=== PATIENT | male | born 1980 ===

== ENCOUNTER 2018-01-10 12:40 | Inpatient (IN) | payer SELFPAY ==
--- NOTE | 2018-01-10 14:18 | Ultrasound Report ---
Testicular sonogram: History: Right testicular pain for 2 weeks. Findings: Right testis measures 3.3 x 1.8 x 2.2 cm. Uniform echogenicity and normal color flow. The epididymis is not visualized. There is a mass identified in the region of the epididymis, lateral to testis, extending to the right inguinal area. No peristalsis is seen within the mass. No abnormal color flow or fluid. Left testes for by 1.8 x 3 cm. Uniform echogenicity with normal color flow normal epididymis. No fluid in the scrotal sac. Impression: Right inguinoscrotal mass, would be hernia containing fat or collapsed bowel among others. Recommend CT scan of pelvis.
[2018-01-10] MEDS ORDERED: MORPHINE IV ONE (16:21)
[2018-01-10] MEDS ORDERED: NACL 0.9% 1000 ML 1,000 ML IV ONE ×2 (16:21→16:49)
[2018-01-10] MEDS ORDERED: TORADOL IV ONE (16:21)
[2018-01-10] MEDS ORDERED: ZOFRAN IV ONE (16:21)
--- NOTE | 2018-01-10 16:27 | Emergency Department Report ---
Blank Doc - Documentation Documentation: Patient is a 37-year-old male who is presenting with right inguinal and scrotal pain. Patient states pain has been present for approximately 2 weeks. Patient has had a hernia that comes and goes in this region before partially a year and a half was never had pain. Patient's had normal bowel movements until 2 days ago. Patient has not had a bowel movement since. Patient states the pain is 8 out of 10 in severity and is concentrated in the right scrotum and right inguinal area. Patient states the hernias Larger and cannot be reduced at this time. Patient states this is not normal for him. Patient states there is some nausea but denies vomiting. Patient also denies fever. On brief focused physical exam patient has firm area swelling to the right inguinal area as well as the right scrotum. There is some very mild hyperemia to the skin on the right side of the scrotum. There is no areas of fluctuance. Ultrasound was performed that shows a mass is in the right scrotum suggestive of a hernia however there is no peristalsis and CT was suggested. Patient removed the main area for continued care. A CT abdomen and pelvis with by mouth IV contrast will be done labs are been ordered.
--- NOTE | 2018-01-10 16:47 | Emergency Department Report ---
ED Male HPI - General Chief complaint: Urogenital-Male Stated complaint: TESTICULAR PAIN RIGHT SIDE Time Seen by Provider: 01/10/18 16:12 Source: patient Mode of arrival: Ambulatory Limitations: No Limitations - History of Present Illness Initial comments: Patient said he is having right testicular pain for the past weeks. Denies any history of trauma or injury. MD Complaint: testicle pain, testicle swelling -: Gradual, week(s) (two) Location: right testicle, right inguinal region Radiation: none Severity: severe Severity scale (0 -10): 8 Quality: aching, sharp Consistency: constant Improves with: none Worsens with: none denies other symptoms - Related Data Sexually active: Yes Allergies Allergy/AdvReac Type Severity Reaction Status Date / Time No Known Allergies Allergy Verified 01/10/18 13:25 ED Review of Systems ROS: Stated complaint: TESTICULAR PAIN RIGHT SIDE Other details as noted in HPI Comment: All other systems reviewed and negative Constitutional: denies: chills, fever Eyes: denies: eye pain, eye discharge ENT: denies: ear pain, throat pain Respiratory: denies: cough, orthopnea, shortness of breath Cardiovascular: denies: chest pain, palpitations, dyspnea on exertion Endocrine: no symptoms reported Gastrointestinal: denies: abdominal pain, nausea, vomiting, diarrhea Genitourinary: denies: urgency, dysuria, frequency Musculoskeletal: denies: back pain, joint swelling Skin: denies: rash, lesions Neurological: denies: headache, weakness, numbness Psychiatric: denies: anxiety, depression Hematological/Lymphatic: denies: easy bleeding, easy bruising ED Past Medical Hx - Past Medical History Previous Medical History?: No Hx HIV: Yes - Surgical History Past Surgical History?: No - Social History Smoking Status: Never Smoker Substance Use Type: Alcohol ED Physical Exam - General Limitations: No Limitations General appearance: alert, in no apparent distress - Head Head exam: Present: atraumatic, normocephalic, normal inspection - Eye Eye exam: Present: normal appearance, PERRL, EOMI Pupils: Present: normal accommodation - ENT ENT exam: Present: normal exam, normal orophraynx, mucous membranes moist - Neck Neck exam: Present: normal inspection, full ROM. Absent: tenderness - Respiratory Respiratory exam: Present: normal lung sounds bilaterally. Absent: respiratory distress, wheezes, rales, rhonchi, stridor - Cardiovascular Cardiovascular Exam: Present: regular rate, normal rhythm, normal heart sounds - GI/Abdominal GI/Abdominal exam: Present: soft, tenderness, normal bowel sounds, hernia, other (right inguinal swelling with tenderness to palpation.). Absent: distended, guarding, rebound, rigid - Rectal Rectal exam: Present: deferred - exam: Present: testicular tenderness, scrotal swelling External exam: Present: normal external exam, other (chaperoned was Ms. Aliyah RN.) - Extremities Exam Extremities exam: Present: normal inspection, full ROM, normal capillary refill - Back Exam Back exam: Present: normal inspection, full ROM. Absent: tenderness, CVA tenderness (R), CVA tenderness (L) - Neurological Exam Neurological exam: Present: alert, oriented X3, CN II-XII intact - Psychiatric Psychiatric exam: Present: normal affect, normal mood, anxious - Skin Skin exam: Present: warm, dry, intact, normal color. Absent: rash ED Course Vital Signs 01/10/18 01/10/18 13:28 19:44 Temperature 98.3 F Pulse Rate 74 67 Respiratory 16 17 Rate Blood Pressure 143/89 Blood Pressure 121/72 [Right] O2 Sat by Pulse 100 97 Oximetry - Reevaluation(s) Reevaluation #1: 01/10/18 23:02 I consulted the General Surgeon transition advisor Dr Kramer. He will see patient tomorrow morning. Patient will be admitted by the hospitalist transition advisor Dr Myranda Reeder for further evaluation and management. ED Medical Decision Making - Lab Data Result diagrams: 01/10/18 16:52 01/10/18 16:52 - Radiology Data Radiology results: report reviewed, image reviewed - Medical Decision Making Right Inguinal Mass. Inguinal Hernia. Right Scrotal Mass. Critical care attestation.: If time is entered above; I have spent that time in minutes in the direct care of this critically ill patient, excluding procedure time. ED Disposition Clinical Impression: Right inguinal hernia, Scrotal swelling Disposition: OP ADMIT IP TO THIS HOSP Is pt being admited?: Yes Does the pt Need Aspirin: No Condition: Stable Referrals: PRIMARY CARE, [Primary Care Provider] - 3-5 Days Time of Disposition: 22:05
[2018-01-10 17:01] LABS: Basophils % (Auto) 0.7 % (0.0-1.8); Eosinophils % (Auto) 1.1 % (0.0-4.3); Hemoglobin 16.5 gm/dl (11.8-15.2); Lymphocytes # (Auto) 1.3 K/mm3 (1.2-5.4); Lymphocytes % (Auto) 31.3 % (13.4-35.0); Mean Corpuscular HGB Conc 35 % (32-34); Mean Corpuscular Hemoglobin 34 pg (28-32); Mean Corpuscular Volume 96 fl (84-94); Monocytes # (Auto) 0.3 K/mm3 (0.0-0.8); Monocytes % (Auto) 8.3 % (0.0-7.3); Platelet Count 230 K/mm3 (140-440); Red Blood Count 4.87 M/mm3 (3.65-5.03); Red Cell Distribution Width 12.2 % (13.2-15.2)
[2018-01-10 17:11] LABS: INR 0.91 (0.87-1.13)
[2018-01-10 17:12] LABS: Partial Thromboplastin Time 25.4 Sec. (24.2-36.6)
[2018-01-10] MEDS ORDERED: DILAUDID IV ONE (17:15)
[2018-01-10] MEDS ORDERED: REGLAN IV PRN (17:15)
[2018-01-10 17:16] LABS: Alanine Aminotransferase 25 units/L (7-56); Albumin 4.3 g/dL (3.9-5); BUN/Creatinine Ratio 20; Blood Urea Nitrogen 14 mg/dL (9-20); Calcium 9.1 mg/dL (8.4-10.2); Hemolysis Index 3
--- NOTE | 2018-01-10 20:54 | Cat Scan Report ---
FINAL REPORT PROCEDURE: CT ABDOMEN PELVIS W CON TECHNIQUE: Computerized axial tomography of the abdomen and pelvis was performed after the IV injection of iodinated nonionic contrast. HISTORY: Right inginoscrotal mass with pain COMPARISON: No prior studies are available for comparison. FINDINGS: Liver, spleen, pancreas and adrenal glands are within normal limits. Bilateral kidneys demonstrate uniform enhancement without hydronephrosis. Urinary bladder is normally distended with normal outlines. Aorta is of normal caliber. There is no free fluid or free air. Gallbladder is unremarkable. Small bowel loops are within normal limits. Appendix is normal. A right inguinal hernia is noted containing fat without any signs of obstruction measuring 13 centimeters x 4 x 6 centimeters. IMPRESSION: Uncomplicated large fat containing right inguinal hernia
[2018-01-10] MEDS ORDERED: MORPHINE IV PRN (22:42)
[2018-01-10] MEDS ORDERED: ZOFRAN IV PRN (22:42)
[2018-01-10] MEDS ORDERED: TYLENOL PO PRN (22:42)
[2018-01-10] MEDS ORDERED: SODIUM CHLORIDE FLUSH SYRINGE 10 ML IV PRN (22:42)
--- NOTE | 2018-01-10 22:42 | History and Physical Report ---
History of Present Illness Date of examination: 01/10/18 History of present illness: 37-year-old male in no medical problems comes emergency room with complaining of right groin pain started over the last 4 weeks, he describes it as sharp pain , intermittent every 5 minutes, no radiation, candidate and exacerbating or relieving factors. Review of systems Constitutional: no weight loss, chills, fever Ears, eyes, nose, mouth and throat: no nasal congestion, no nasal discharge, no sinus pressure, no vision change, no red eye. Neck: No neck pain or rigidity. Cardiovascular: no chest pain, palpitations Respiratory: no cough, shortness of breath Gastrointestinal: no abdominal pain hematochezia Genitourinary : no frequency , no hematuria Musculoskeletal: no joint swelling or muscle ache Integumentary: no rash, no pruritis Neurological: no parathesias, no numbness, no focal weakness Endocrine: no cold or heat intolerance, no polyuria or polydipsia Hematologic/Lymphatic: no easy bruising, no easy bleeding, no gland swelling Allergic/Immunologic: no urticaria, no angioedema. PAST MEDICAL HISTORY: None PAST SURGICAL HISTORY: None SOCIAL HISTORY: Social alcohol, no drugs, tobacco FAMILY HISTORY: Hypertension Medications and Allergies Allergies Allergy/AdvReac Type Severity Reaction Status Date / Time No Known Allergies Allergy Verified 01/10/18 13:25 Active Meds: Active Medications Metoclopramide HCl (Reglan) 10 mg IV Q6H PRN PRN Reason: Nausea And Vomiting Exam - Physical Exam Narrative exam: Gen. appearance: Patient lying in bed, no apparent distress HEENT: Normocephalic, atraumatic, pupils equally round and reactive to light, extraocular movement intact, and no sclericterus,. No JVD or thyromegaly or nodule,neck supple, no carotid bruit ,mucous membranes moist, no exudate or erythema Heart: S1, S2, regular rate and rhythm Lungs: Clear bilaterally, breathing comfortable Abdomen: Positive bowel sounds, non-tender, nondistended, no organomegaly Extremity: Right inguinal hernia no edema cyanosis, clubbing Skin: no rash, dry, warm Neuro: Oriented 3, cranial nerves II-12 intact, speech is fluent, motor and sensory intact - Constitutional Vitals: Temp Pulse Resp BP Pulse Ox 98.3 F 67 17 121/72 97 01/10/18 13:28 01/10/18 19:44 01/10/18 19:44 01/10/18 19:44 01/10/18 19:44 Results - Labs CBC & Chem 7: 01/10/18 16:52 01/10/18 16:52 Labs: Abnormal lab results 01/10/18 01/10/18 Range/Units 16:52 16:52 WBC 4.0 L (4.5-11.0) K/mm3 Hgb 16.5 H (11.8-15.2) gm/dl Hct 47.0 H (35.5-45.6) % MCV 96 H (84-94) fl MCH 34 H (28-32) pg MCHC 35 H (32-34) % RDW 12.2 L (13.2-15.2) % [place] % (Auto) 8.3 H (0.0-7.3) % Creatinine 0.7 L (0.8-1.5) mg/dL Glucose 104 H (75-100) mg/dL - Imaging and Cardiology CT scan - abdomen: report reviewed CT scan - pelvis: report reviewed Assessment and Plan testicular US reviewed Assessment Inguinal hernia Plan Admit to medicine Nothing by mouth, IV fluids, consult IV morphine, DVT prophylaxis
[2018-01-10] MEDS ORDERED: NACL 0.9% 1000 ML 1,000 ML IV SCH (23:00)
[2018-01-11 05:11] LABS: Bilirubin,Urine NEG (Negative); Blood,Urine NEG (Negative); Color,Urine Yellow (Yellow); Mucus,Urine FEW /HPF; Protein,Urine <15 mg/dL mg/dL (Negative); RBC,Urine < 1.0 /HPF (0.0-6.0); Urobilinogen,Urine < 2.0 mg/dL (<2.0); WBC,Urine < 1.0 /HPF (0.0-6.0)
[2018-01-11 05:24] LABS: Eosinophils # (Auto) 0.2 K/mm3 (0.0-0.4); Eosinophils % (Auto) 4.1 % (0.0-4.3); Hematocrit 43.5 % (35.5-45.6); Hemoglobin 14.9 gm/dl (11.8-15.2); Lymphocytes # (Auto) 1.3 K/mm3 (1.2-5.4); Lymphocytes % (Auto) 33.3 % (13.4-35.0); Mean Corpuscular HGB Conc 34 % (32-34); Mean Corpuscular Hemoglobin 34 pg (28-32); Mean Corpuscular Volume 98 fl (84-94); Monocytes # (Auto) 0.4 K/mm3 (0.0-0.8); Monocytes % (Auto) 10.8 % (0.0-7.3); Platelet Count 203 K/mm3 (140-440); Red Blood Count 4.43 M/mm3 (3.65-5.03); Red Cell Distribution Width 12.3 % (13.2-15.2)
[2018-01-11 07:29] LABS: BUN/Creatinine Ratio 15; Blood Urea Nitrogen 12 mg/dL (9-20); Calcium 8.7 mg/dL (8.4-10.2); Hemolysis Index 36
[2018-01-11] MEDS ORDERED: ZOFRAN ONE (09:54)
[2018-01-11] MEDS ORDERED: XYLOCAINE MPF 2% ONE (09:54)
[2018-01-11] MEDS ORDERED: SUBLIMAZE ONE (09:54)
[2018-01-11] MEDS ORDERED: DIPRIVAN 10 MG/ML IV ONE (09:54)
[2018-01-11] MEDS ORDERED: NACL 0.9% 100 ML ONE (09:54)
[2018-01-11] MEDS ORDERED: LOVENOX SUB-Q SCH ×2 (10:00)
[2018-01-11] MEDS ORDERED: SODIUM CHLORIDE FLUSH SYRINGE 10 ML IV SCH (10:00)
[2018-01-11] MEDS ORDERED: DILAUDID ONE ×2 (11:09→12:27)
[2018-01-11] MEDS ORDERED: VERSED ONE ×2 (12:22→13:46)
--- NOTE | 2018-01-11 12:39 | Consultation ---
History of Present Illness Consult date: 01/11/18 Chief complaint: right groin pain and swelling - History of present illness History of present illness: 37 yo M with no PMHx presents with swelling of the right scrotum and groin for the last month. He states it is sharp and he often has trouble walking due to the pain. Last night the bulge in his groin became large and tender and could not be pushed back in. He c/o nausea. No vomiting. No f/c. No c/d. The pain is relieved only by IV pain medication. Past History Past Medical History: other (right inguinal hernia) Past Surgical History: No surgical history Social history: no significant social history Family history: no significant family history Medications and Allergies Allergies Allergy/AdvReac Type Severity Reaction Status Date / Time No Known Allergies Allergy Verified 01/10/18 13:25 Active Meds: Active Medications Acetaminophen (Tylenol) 650 mg PO Q4H PRN PRN Reason: Pain MILD(1-3)/Fever >100.5/SNYDER Enoxaparin Sodium (Lovenox) 40 mg SUB-Q QDAY@1000 [facility] Last Admin: 01/11/18 09:51 Dose: 40 mg Sodium Chloride (Nacl 0.9% 1000 Ml) 1,000 mls @ 75 mls/hr IV DIRECT [facility] Last Admin: 01/11/18 00:19 Dose: 75 mls/hr Metoclopramide HCl (Reglan) 10 mg IV Q6H PRN PRN Reason: Nausea And Vomiting Morphine Sulfate (Morphine) 2 mg IV Q4H PRN PRN Reason: Pain, Moderate (4-6) Last Admin: 01/11/18 00:19 Dose: 2 mg Ondansetron HCl (Zofran) 4 mg IV Q4H PRN PRN Reason: Nausea And Vomiting Last Admin: 01/11/18 00:19 Dose: 4 mg Sodium Chloride (Sodium Chloride Flush Syringe 10 Ml) 10 ml IV BID [facility] Last Admin: 01/11/18 09:51 Dose: Not Given Sodium Chloride (Sodium Chloride Flush Syringe 10 Ml) 10 ml IV PRN PRN PRN Reason: LINE FLUSH Review of Systems All systems: negative (10 pt ROS performed and negative except for that listed in HPI) Exam Vital Signs Temp Pulse Resp BP Pulse Ox 98.3 F 74 16 143/89 100 01/10/18 13:28 01/10/18 13:28 01/10/18 13:28 01/10/18 13:28 01/10/18 13:28 Narrative exam: Gen: AAOx3. NAD CV: S1, S2+ resp; even and unlabored Abd: soft, NT, ND. Right inguinal hernia, reducible, no skin changes or TTP. Recurs with minimal straining of the abdomen. Ext: no c/c/e Results - Labs 01/11/18 04:41 01/11/18 04:41 Abnormal lab results 01/10/18 01/10/18 01/11/18 Range/Units 16:52 16:52 04:13 WBC 4.0 L (4.5-11.0) K/mm3 Hgb 16.5 H (11.8-15.2) gm/dl Hct 47.0 H (35.5-45.6) % MCV 96 H (84-94) fl MCH 34 H (28-32) pg MCHC 35 H (32-34) % RDW 12.2 L (13.2-15.2) % Esmeralda % (Auto) 8.3 H (0.0-7.3) % Creatinine 0.7 L (0.8-1.5) mg/dL Glucose 104 H (75-100) mg/dL Ur Specific [place] 1.046 H (1.003-1.030) 01/11/18 Range/Units 04:41 WBC 4.0 L (4.5-11.0) K/mm3 Hgb (11.8-15.2) gm/dl Hct (35.5-45.6) % MCV 98 H (84-94) fl MCH 34 H (28-32) pg MCHC (32-34) % RDW 12.3 L (13.2-15.2) % Esmeralda % (Auto) 10.8 H (0.0-7.3) % Creatinine (0.8-1.5) mg/dL Glucose (75-100) mg/dL Ur Specific [place] (1.003-1.030) Diabetes panel 01/10/18 01/11/18 Range/Units 16:52 04:41 Sodium 140 137 (137-145) mmol/L Potassium 3.7 4.2 (3.6-5.0) mmol/L Chloride 99.8 102.6 (98-107) mmol/L Carbon Dioxide 27 25 (22-30) mmol/L BUN 14 12 (9-20) mg/dL Creatinine 0.7 L 0.8 (0.8-1.5) mg/dL Glucose 104 H 88 (75-100) mg/dL Calcium 9.1 8.7 (8.4-10.2) mg/dL AST 28 (5-40) units/L ALT 25 (7-56) units/L Alkaline Phosphatase 80 (35-129) units/L Total Protein 7.8 (6.3-8.2) g/dL Albumin 4.3 (3.9-5) g/dL Calcium panel 01/10/18 01/11/18 Range/Units 16:52 04:41 Calcium 9.1 8.7 (8.4-10.2) mg/dL Albumin 4.3 (3.9-5) g/dL Pituitary panel 01/10/18 01/11/18 Range/Units 16:52 04:41 Sodium 140 137 (137-145) mmol/L Potassium 3.7 4.2 (3.6-5.0) mmol/L Chloride 99.8 102.6 (98-107) mmol/L Carbon Dioxide 27 25 (22-30) mmol/L BUN 14 12 (9-20) mg/dL Creatinine 0.7 L 0.8 (0.8-1.5) mg/dL Glucose 104 H 88 (75-100) mg/dL Calcium 9.1 8.7 (8.4-10.2) mg/dL Adrenal panel 01/10/18 01/11/18 Range/Units 16:52 04:41 Sodium 140 137 (137-145) mmol/L Potassium 3.7 4.2 (3.6-5.0) mmol/L Chloride 99.8 102.6 (98-107) mmol/L Carbon Dioxide 27 25 (22-30) mmol/L BUN 14 12 (9-20) mg/dL Creatinine 0.7 L 0.8 (0.8-1.5) mg/dL Glucose 104 H 88 (75-100) mg/dL Calcium 9.1 8.7 (8.4-10.2) mg/dL Total Bilirubin 0.40 (0.1-1.2) mg/dL AST 28 (5-40) units/L ALT 25 (7-56) units/L Alkaline Phosphatase 80 (35-129) units/L Total Protein 7.8 (6.3-8.2) g/dL Albumin 4.3 (3.9-5) g/dL Assessment and Plan 37 yo M with reducible right inguinal hernia containing fat 1. Pt NPO 2. prn pain control 3. DVT ppx 4. IVF 5. Pt is requiring IV pain medications for right groin pain. In addition, because patient is having pain in the right groin, trouble walking, and unable to work due to the hernia, we will perform inguinal hernia repair with mesh. I will use the optimization engineer line to obtain consent for an open right inguinal hernia repair with mesh. The patient is agreeable. Thank you, please call with questions or concerns.
[2018-01-11] MEDS ORDERED: ceFAZolin 2 GM in NACL 0.9% 100 ML IV ONE (13:08)
[2018-01-11] MEDS ORDERED: DILAUDID IV PRN (13:31)
--- NOTE | 2018-01-11 13:37 | Anesthesia Day of Surgery ---
Anesthesia Day of Surgery - Day of Surgery Patient Examined: Yes Patient H&P Reviewed: Yes Patient is NPO: Yes Beta Blockers: No Cardiac Clearance: No Pulmonary Clearance: No
--- NOTE | 2018-01-11 13:37 | Anesthesia Consultation ---
Anesthesia Consult and Med Hx - Airway Anesthetic Teeth Evaluation: Good ROM Head & Neck: Adequate Mental/Hyoid Distance: Adequate Mallampati Class: Class III Intubation Access Assessment: Probably Good - Pulmonary Exam CTA: Yes - Cardiac Exam Cardiac Exam: No Murmur - Pre-Operative Health Status ASA Pre-Surgery Classification: ASA2 Proposed Anesthetic Plan: General - Pulmonary Hx Asthma: No COPD: No Hx Pneumonia: No - Endocrine Hx End Stage Renal Disease: No
[2018-01-11] MEDS ORDERED: MARCAINE 0.25% INFILTRATI ONE ×2 (14:03→14:05)
[2018-01-11] MEDS ORDERED: BLOXIVERZ ONE ×2 (15:22→15:41)
[2018-01-11] MEDS ORDERED: ROBINUL ONE (15:23)
[2018-01-11] MEDS ORDERED: ANCEF ONE (15:23)
[2018-01-11] MEDS ORDERED: TORADOL ONE (15:25)
[2018-01-11] MEDS ORDERED: PERCOCET 5/325 PO PRN (15:31)
--- NOTE | 2018-01-11 15:33 | Post Operative Note ---
Date of procedure: 01/11/18 Pre-op diagnosis: right inguinal hernia Post-op diagnosis: same Findings: right inguinal indirect hernia with chronically scarred sac, omentum in hernia sac Procedure: open right inguinal hernia repair with mesh Anesthesia: POPPYA, local Surgeon: ASHLEY HADDAD Estimated blood loss: minimal Pathology: list (hernia sac) Specimen disposition: to lab Condition: stable Disposition: PACU
[2018-01-11] MEDS ORDERED: NACL 0.9% 1000 ML 1,000 ML ONE (15:53)
--- NOTE | 2018-01-11 16:26 | Discharge Summary ---
Providers - Providers Date of Admission: 01/10/18 22:42 Date of discharge: 01/11/18 Attending physician: LATA CHARLES 01/10/18 22:42 Consult to Physician [CONS] Routine Comment: Consulting Provider: SHARRI DUENAS Physician Instructions: Reason For Exam: hernia Primary care physician: PSYCHIATRIC REGISTERED NURSE Hospitalization Reason for admission: scrotal swelling /right inguinal hernia Condition: Stable Pertinent studies: Testicular ultrasound; right inguinal scrotal mass could be hernia containing fat and collapsed bowel CT abdomen and pelvis; uncomplicated large fat containing right inguinal hernia Procedures: Diagnosis :right inguinal indirect hernia with chronically scarred sac, omentum in hernia sac Procedure; open right inguinal hernia repair with meshl Hospital course: Very pleasant 37-year-old male patient with no significant past medical history was admitted through emergency room with right groin pain and swelling Initial evaluation is consistent with right inguinal hernia Admitted to the hospital symptomatically managed, evaluated by surgery Patient underwent right hernia repair with mesh Patient tolerated the procedure well Continue Postopcare, feeling better except for some pain Vital signs stable Physical examination prior to discharge did not show any new changes Surgical wound is clean without bleeding or hematoma Surgery cleared for discharge after dinner if stable Plan of care is reviewed with the patient and the nurse Discharge diagnosis; --Scrotal swelling --Right inguinal hernia; status post an inguinal hernia repairs with mesh Disposition: DC-01 TO HOME OR SELFCARE Time spent for discharge: 31 min - Discharge Diagnoses (1) Right inguinal hernia Status: Acute (2) Scrotal swelling Status: Acute Core Measure Documentation - Palliative Care Palliative Care/ Comfort Measures: Not Applicable - Core Measures Any of the following diagnoses?: none Exam - Constitutional Vitals: Temp Pulse Resp BP Pulse Ox 97.3 F L 73 16 106/71 100 01/11/18 15:40 01/11/18 16:15 01/11/18 16:15 01/11/18 16:15 01/11/18 16:15 General appearance: Present: no acute distress, well-nourished - EENT Eyes: Present: PERRL, EOM intact - Neck Neck: Present: supple, normal ROM - Respiratory Respiratory effort: normal Respiratory: bilateral: diminished, negative: rales, rhonchi, wheezing - Cardiovascular Rhythm: regular Heart Sounds: Present: S1 & S2 - Extremities Extremities: no ischemia, No edema - Abdominal General gastrointestinal: Present: soft, non-tender, non-distended, normal bowel sounds - Integumentary Integumentary: Present: clear, warm - Musculoskeletal Musculoskeletal: strength equal bilaterally - Psychiatric Psychiatric: appropriate mood/affect, cooperative - Neurologic Neurologic: CNII-XII intact, moves all extremities Plan Activity: advance as tolerated Diet: regular Additional Instructions: Postoperative Precautions, do not lift weights. Scrotal support. A few have any bleeding from the surgical site or any swelling , contact M.D. or go to emergency room Follow up with: ASHLEY HADDAD DO [Staff Physician] - 14 Days PRIMARY CARE, [Primary Care Provider] - 3-5 Days Prescriptions: oxyCODONE /ACETAMINOPHEN [Percocet 5/325 mg] 1 tab PO Q6H PRN #20 tablet PRN Reason: Pain, Moderate (4-6)
--- NOTE | 2018-01-11 16:31 | Post Anesthesia Evaluation ---
- Post Anesthesia Evaluation Patient Participated: Yes Airway Patent: Yes Stable Respiratory Function: Yes Nausea/Vomiting: No Temp > 96.8F: Yes Pain Manageable: Yes Adequeate Hydration: Yes Anesthesia Complications: No Block Receding Appropriately: Not Applicable Patient on Ventilator: No
[2018-01-11 16:56] VITALS: BP 124/79
--- NOTE | 2018-01-12 14:22 | Operative Report ---
Operative Report Operative Report: Date of procedure: 01/11/18 Pre-op diagnosis: right inguinal hernia Post-op diagnosis: same Findings: right inguinal indirect hernia with chronically scarred sac, omentum in hernia sac Procedure: open right inguinal hernia repair with mesh Anesthesia: PERLITA, local Surgeon: ASHLEY HADDAD Estimated blood loss: minimal Pathology: list (hernia sac) Specimen disposition: to lab Condition: stable Disposition: PACU HPI an indication: Patient is a 37-year-old male with no past medical history presented to the emergency room with complaints of right groin pain and swelling for 4 weeks. He was found to have a right inguinal hernia containing fat. The patient was admitted for pain control. Upon examination, the patient' s pain was better and his right inguinal hernia was reducible however because of his debility from the hernia including pain, swelling, inability to work, difficulty walking, the decision was made to proceed with surgery. All risks, benefits, alternatives to surgery were discussed with the patient and questions answered. Consent was obtained using the language line crm business analyst. Procedure in detail: The patient was identified in the preoperative area, taken back to the operating room and placed on the operating room table in supine position. After anesthesia was induced, the right groin and lower abdomen hair was clipped and then prepped and draped in the usual sterile fashion. Timeout was performed. An oblique incision was made between the ASIS and pubic tubercle in the right groin using a 15 blade. The dissection was carried down through skin and subcutaneous tissue using electrocautery until the external oblique fascia was identified. Hemostasis was achieved along the way. The external oblique fascia was opened in the direction of its fibers using a Metzenbaum scissor. The ilioinguinal nerve was identified and protected. Using blunt dissection, the external oblique fibers were from the cord structures. A indirect inguinal hernia was identified. The cord structures were encircled using a Joshua drain and retracted. The hernia sac was identified and from the cremasteric muscles. The omentum contained within the hernia sac was reduced. The hernia sac was chronically scarred to the cord structures and could not be distally. Therefore the borders of the hernia sac were identified and the hernia sac was ligated and transected from the cord structures. The hernia sac was then ligated at the internal ring and transected using electrocautery and passed off the table as a specimen. The field was then irrigated and hemostasis ensured. Using a 6 cm plug and patch mesh, the hernia was fixed. The plug was formed and placed into the internal ring and sutured on both sides to the ring using 2-0 Prolene suture. Patch was affixed to the fascia overlying the pubic tubercle using a 2- 0 Prolene suture. A keyhole was then cut in the center of the mesh in order to accommodate the cord structures. The medial leaflet was sutured to the transversalis fascia using interrupted 2-0 Prolene sutures. The lateral leaflet was brought underneath the cord structures and sutured to the shelving edge using 2-0 Prolene interrupted sutures. The leaflets were then tucked under the external oblique fascia and approximated to each other using 2-0 Prolene suture, with great care to avoid injury to the cord structures or ilioinguinal nerve. The ilioinguinal nerve was then placed in normal anatomic position over the mesh. The external oblique fascia was reapproximated using a running 3-0 Vicryl suture. The wound was irrigated and hemostasis ensured. The subcutaneous tissue was approximated using 2-0 Vicryl interrupted sutures. The deep dermal layer was closed using 3-0 Vicryl interrupted sutures. The skin was closed using 4-0 Monocryl subcuticular running stitch and skin glue. Local anesthetic was once again infiltrated into the skin incision. An ilioinguinal nerve block was also performed. At the end of the case, all sponge, instrument, sharp counts were correct 2. The patient was awoken from anesthesia, extubated, taken to PACU in stable condition.
== END 2018-01-11 20:10 | disposition home or self-care (01) | DRG 352 ==
LOC: ED 12:40 → 3B-SURG 22:42
PROVIDERS: ADMIT Internal Medicine; ATTEND Internal Medicine
PROC: 0YU50JZ Supplement Right Inguinal Region with Synthetic Substitute, Open Approach (ICD-10-PCS; principal; 2018-01-11)
DX: K40.90 Unilateral inguinal hernia, without obstruction or gangrene, not specified as recurrent (principal); N50.89 Other specified disorders of the male genital organs; Z82.49 Family history of ischemic heart disease and other diseases of the circulatory system; Z72.89 Other problems related to lifestyle
CPT/HCPCS: 36415; 74177; 80048; 80053; 81001; 82140; 85025; 85610; 85730; 93975; 96374; 96375; J0690; J1170; J1650; J1885; J2250; J2270; J2405; J2704; J2710; J3010; J7030; Q9967

== ENCOUNTER 2018-01-16 22:50 | Emergency (ER) | payer SELFPAY ==
--- NOTE | 2018-01-17 02:30 | Ultrasound Report ---
FINAL REPORT EXAM: US TESTICULAR DOPPLER COMP HISTORY: swelling and pain, s/p Hernia repair TECHNIQUE: Real-time sonography was performed of the scrotum and images are submitted for interpretation. PRIORS: CT scan from 01/10/2018 FINDINGS: The scrotal skin appears thickened. Both testes appear normal in size, shape and echogenicity with the right measuring 3.6 x 2.1 x 2.1 cm and the left measuring 4.3 x 2.3 x 2.9 cm. The epididymides both appear normal. The right epididymal head measures 0.8 x 1.3 x 1.9 cm and the left measures 0.7 x 1.5 x 1.1 cm. There is a large right hydrocele. Color duplex evaluation shows normal waveforms without evidence of torsion. The right inguinal canal was scanned and appears normal. IMPRESSION: New large right hydrocele. Thickening of the scrotal skin may represent cellulitis or post surgical edema. Otherwise, normal testicular ultrasound.
[2018-01-17] MEDS ORDERED: MORPHINE IV ONE ×2 (07:08→11:49)
[2018-01-17] MEDS ORDERED: ZOFRAN IV ONE (07:11)
--- NOTE | 2018-01-17 08:40 | Cat Scan Report ---
CT scan of abdomen and pelvis with IV contrast: Findings: Large ill-defined density right lower lobe probably suggestive of pneumonitis/segmental atelectasis. Pleural thickening right and left lower lobe. Normal liver spleen pancreas and gallbladder. Normal adrenals kidneys and bladder. No free intraperitoneal fluid or air. No evidence of adenopathy. Gaseous colon with moderate volume stool in colon. No evidence of bowel obstruction. There is thickening noted of the right scrotal skin with moderate amount of hydrocele. The testes is not optimally visualized. There there is right inguinal mass noted extending to the pelvis. This may be related to postsurgical changes or recurrent hernia. Part of the mass within pelvis appears cystic and measures 1.5 cm. Impression: Right inguinoscrotal changes as detailed above.
[2018-01-17 09:42] LABS: Basophils % (Auto) 0.3 % (0.0-1.8); Eosinophils % (Auto) 0.3 % (0.0-4.3); Hemoglobin 16.5 gm/dl (11.8-15.2); Lymphocytes # (Auto) 1.4 K/mm3 (1.2-5.4); Lymphocytes % (Auto) 14.6 % (13.4-35.0); Mean Corpuscular HGB Conc 35 % (32-34); Mean Corpuscular Hemoglobin 34 pg (28-32); Mean Corpuscular Volume 97 fl (84-94); Monocytes # (Auto) 1.1 K/mm3 (0.0-0.8); Monocytes % (Auto) 11.8 % (0.0-7.3); Platelet Count 243 K/mm3 (140-440); Red Blood Count 4.85 M/mm3 (3.65-5.03)
[2018-01-17 10:01] LABS: BUN/Creatinine Ratio 19; Blood Urea Nitrogen 15 mg/dL (9-20); Calcium 9.7 mg/dL (8.4-10.2); Hemolysis Index 2
--- NOTE | 2018-01-17 10:20 | Emergency Department Report ---
ED Male HPI - General Chief complaint: Urogenital-Male Stated complaint: ABD PAIN Time Seen by Provider: 01/17/18 09:15 Source: patient, family Mode of arrival: Ambulatory Limitations: No Limitations - History of Present Illness Initial comments: 37 yo M s/p right inguinal hernia repair 6 days ago. Reports right testicular pain ans swelling since the surgey, radiating up into RLQ and RUQ. States pain begacame worse yesterday. Pt has not followed up w/ surgeon yet, Dr Haddad. Denies fever, vomiting, reports nausea. Denies constipation, dysuria, hematuria. MD Complaint: testicle pain, testicle swelling -: Gradual, days(s) (6) Location: right testicle, right inguinal region Radiation: other (RLQ and RUQ) Severity: moderate Quality: other ("pulling sensation") Consistency: intermittent Improves with: none Worsens with: other (walking) recent surgery swelling. denies: discharge, urinary retention, blood in urine, dysuria, fever - Related Data Previous Rx's Medication Instructions Recorded Last Taken Type oxyCODONE /ACETAMINOPHEN [Percocet 1 tab PO Q6H PRN #20 tablet 01/11/18 Unknown Rx 5/325 mg] Naproxen [Naprosyn] 500 mg PO BID PRN #20 tablet 01/17/18 Unknown Rx oxyCODONE /ACETAMINOPHEN [Percocet 1 tab PO Q6HR PRN #6 tablet 01/17/18 Unknown Rx 5/325] Allergies Allergy/AdvReac Type Severity Reaction Status Date / Time No Known Allergies Allergy Verified 01/10/18 13:25 ED Review of Systems ROS: Stated complaint: ABD PAIN Other details as noted in HPI Comment: All other systems reviewed and negative Constitutional: denies: fever Respiratory: denies: cough, shortness of breath Gastrointestinal: abdominal pain, nausea. denies: vomiting, constipation Genitourinary: testicular pain. denies: dysuria, hematuria ED Past Medical Hx - Past Medical History Hx Congestive Heart Failure: No Hx Diabetes: No Hx Asthma: No Hx COPD: No Hx HIV: Yes - Surgical History Past Surgical History?: Yes Additional Surgical History: hernia repair - Social History Smoking Status: Never Smoker Substance Use Type: None - Medications Home Medications: Home Medications Medication Instructions Recorded Confirmed Last Taken Type oxyCODONE /ACETAMINOPHEN [Percocet 1 tab PO Q6H PRN #20 tablet 01/11/18 Unknown Rx 5/325 mg] Naproxen [Naprosyn] 500 mg PO BID PRN #20 tablet 01/17/18 Unknown Rx oxyCODONE /ACETAMINOPHEN [Percocet 1 tab PO Q6HR PRN #6 tablet 01/17/18 Unknown Rx 5/325] ED Physical Exam - General Limitations: No Limitations General appearance: alert, in no apparent distress - Head Head exam: Present: atraumatic, normocephalic - Eye Eye exam: Present: normal appearance - ENT ENT exam: Present: mucous membranes moist - Neck Neck exam: Present: normal inspection - Respiratory Respiratory exam: Present: normal lung sounds bilaterally. Absent: respiratory distress - Cardiovascular Cardiovascular Exam: Present: regular rate, normal rhythm. Absent: systolic murmur, diastolic murmur, rubs, gallop - GI/Abdominal GI/Abdominal exam: Present: soft, tenderness (RLQ tenderness). Absent: distended - Rectal Rectal exam: Present: deferred - exam: Present: other (incision site at rigt iguinal region clean, dry, intact ; R scrotal swelling present, tender to palpation, no erythema present). Absent : urethral discharge - Extremities Exam Extremities exam: Present: normal inspection - Back Exam Back exam: Present: normal inspection - Neurological Exam Neurological exam: Present: alert, oriented X3 - Psychiatric Psychiatric exam: Present: normal affect, normal mood - Skin Skin exam: Present: warm, dry, intact, normal color. Absent: rash ED Course Vital Signs 01/17/18 01/17/18 00:49 09:59 Temperature 99.5 F 99.5 F Pulse Rate 97 H 96 H Respiratory 20 18 Rate Blood Pressure 129/87 Blood Pressure 112/76 [Left] O2 Sat by Pulse 100 98 Oximetry - Consultations Consultation #1: 01/17/18 12:04 Spoke w/ Dr Kramer. States findings on CT and US are expected due to extent of pt's incarcerated hernia. Recommends ice pack, elevation, office f/u. ED Medical Decision Making - Lab Data Result diagrams: 01/17/18 09:27 01/17/18 09:27 - Medical Decision Making 37 yo M s/p left inguinal hernia repair 6 days ago. Reports pain and swelling since the surgery, but worse yesterday. Right scrotum swollen and tender. CT and US shows hydrocele. Pt afebrile, WBCs nml. Will contact Dr Haddad. - Differential Diagnosis hematoma, bowel obstruction, hydrocele, abscess, hernia Critical care attestation.: If time is entered above; I have spent that time in minutes in the direct care of this critically ill patient, excluding procedure time. ED Disposition Clinical Impression: Hydrocele, Post-operative pain Disposition: TO HOME OR SELFCARE Is pt being admited?: No Does the pt Need Aspirin: No Condition: Stable Instructions: Hydrocele (ED) Additional Instructions: Return to the ER if your condition worsens. Prescriptions: Naproxen [Naprosyn] 500 mg PO BID PRN #20 tablet PRN Reason: Pain, Moderate (4-6) oxyCODONE /ACETAMINOPHEN [Percocet 5/325] 1 tab PO Q6HR PRN #6 tablet PRN Reason: Pain Referrals: PRIMARY CARE,MD [Primary Care Provider] - 3-5 Days ASHELY HADDAD DO [Staff Physician] - 3-5 Days Time of Disposition: 12:08
[2018-01-17 11:33] VITALS: BP 112/76
[2018-01-17 13:31] LABS: WBC,Urine < 1.0 /HPF (0.0-6.0)
[2018-01-17 13:42] LABS: Bilirubin,Urine NEG (Negative); Blood,Urine NEG (Negative); Color,Urine Yellow (Yellow); Mucus,Urine 1+ /HPF; Protein,Urine <15 mg/dL mg/dL (Negative); Urobilinogen,Urine < 2.0 mg/dL (<2.0)
== END 2018-01-17 12:55 | disposition home or self-care (01) ==
LOC: ED 22:50
DX: N43.2 Other hydrocele (principal); G89.18 Other acute postprocedural pain
CPT/HCPCS: 36415; 74177; 80048; 81001; 85025; 93975; 96374; 96375; 96376; 99284; J2270; J2405; Q9967